=== PATIENT | female | born 1955 | race Two or more races ===

== ENCOUNTER 2022-03-28 11:00 | Emergency (ER) | payer OTHER ==
[~2022-03-28] VITALS: Ht 165.1 cm; Wt 70.8 kg
[~2022-03-28 11:00] MED LIST: DURICEF 500 MG CAPSULE PO; TRAM1TAB98 PO
[2022-03-28] MEDS ORDERED: METOPROLOL SUCC25 MG PO (11:14)
[2022-03-28] MEDS ORDERED: IRBESARTAN-HCT1 EAC1 PO (11:14)
== END 2022-03-28 14:28 | disposition home or self-care (01) ==
LOC: ER 11:00
DX: K59.00 Constipation, unspecified (principal); E03.9 Hypothyroidism, unspecified; I10 Essential (primary) hypertension